=== PATIENT | female | born 1970 | race Caucasian/White ===

== ENCOUNTER 2020-07-25 20:25 | Observation (INO) | payer OTHER ==
[~2020-07-25] VITALS: Ht 162.6 cm; Wt 69.2 kg
[2020-07-25] MEDS ORDERED: ASPIRIN 325 MG TABLET PO ONE (20:45)
[2020-07-25] MEDS ORDERED: MORPHINE SULFATE 4 MG/ML VIAL. IV/SQ PRN (20:45)
[2020-07-25 20:51] LABS: BASO # 0.1 x10^3/uL (0.0-0.2); BASO % 1 % (0-3); EOS # 0.1 x10^3/uL (0.0-0.7); EOS % 1 % (0-3); HEMATOCRIT 38.7 % (36.0-47.0); HEMOGLOBIN 13.4 g/dL (12.0-15.5); LYMPH # 2.2 x10^3/uL (1.0-4.8); LYMPH % 28 % (24-48); MEAN CORPUSCULAR HEMOGLOBIN 31 pg (25-35); MEAN CORPUSCULAR HGB CONC 35 g/dL (31-37); MEAN CORPUSCULAR VOLUME 90 fL (79-100); MONO # 0.8 x10^3/uL (0.0-1.1); MONO % 10 % (0-9); NEUT # 4.9 x10^3/uL (1.8-7.7); NEUT % 61 % (31-73); PLATELET COUNT 409 x10^3/uL (140-400); RED BLOOD COUNT 4.28 x10^6/uL (3.50-5.40); RED CELL DISTRIBUTION WIDTH 13.3 % (11.5-14.5)
[2020-07-25 21:04] LABS: PROTHROMBIN TIME PATIENT 12.8 SEC (11.7-14.0)
[2020-07-25 21:07] LABS: D-DIMER < 0.27 ug/mlFEU (0.00-0.50)
[2020-07-25 21:11] LABS: ALBUMIN 4.1 g/dL (3.4-5.0); ALBUMIN/GLOBULIN RATIO 1.4 (1.0-1.7); CALCIUM 9.4 mg/dL (8.5-10.1); CREATININE 1.5 mg/dL (0.6-1.0); GFR 36.8; MAGNESIUM 2.2 mg/dL (1.8-2.4); TOTAL BILIRUBIN 0.3 mg/dL (0.2-1.0); TOTAL PROTEIN 7.1 g/dL (6.4-8.2)
[2020-07-25 21:13] LABS: POTASSIUM 2.5 mmol/L (3.5-5.1)
--- NOTE | 2020-07-25 21:15 | RAD ---
AP portable chest radiograph 07/25/2020 Clinical History: Chest pain. An AP erect portable digital radiograph of the chest was obtained. The cardiac silhouette is normal in size. The thoracic aorta is mildly tortuous. No acute pulmonary infiltrate is seen. No pleural effusion or pneumothorax is noted. Very mild S-shaped curvature of the thoracolumbar spine is seen. IMPRESSION: No acute abnormality is seen. Electronically signed by: Ab Davila MD (07/25/2020 9:12 PM) [id number]
[2020-07-25] MEDS: NITROGLYCERIN SUBLINGUAL 0.4 MG BOTTLE OF 25. SL PRN ×2 (21:23→21:31)
[2020-07-25] MEDS ORDERED: POTASSIUM CHLORIDE 20 MEQ TABLET.ER. PO ONE (21:30)
[2020-07-25 21:34] LABS: BILIRUBIN,URINE NEGATIVE (NEG); CLARITY,URINE CLEAR; COLOR,URINE YELLOW; NITRITE,URINE NEGATIVE (NEG); PH,URINE 6.5 (<5.0-8.0); PROTEIN,URINE NEGATIVE (NEG-TRACE); UROBILINOGEN,URINE 0.2 mg/dL (0.2 mg/dL)
[2020-07-25 21:40] LABS: BACTERIA,URINE 0 /HPF (0-FEW); RBC,URINE 0 /HPF (0-2); WBC,URINE 0 /HPF (0-4)
[2020-07-25] MEDS: POTASSIUM CHLORIDE 10MEQ 100 ML IV SCH ×2 (21:45→22:29)
[2020-07-25 21:49] LABS: BARBITURATES NEG (NEG); BENZODIAZEPINES POS (NEG); CANNABINOIDS NEG (NEG); COCAINE NEG (NEG); METHADONE NEG (NEG); OPIATES NEG (NEG); PHENCYCLIDINE NEG (NEG)
[2020-07-25 21:51] LABS: AMPHETAMINE/METHAMPHETAMINE POS (NEG)
--- NOTE | 2020-07-25 21:57 | PHYS DOC ---
Past Medical History Past Medical History: Anxiety, Hypertension, Hypothyroid (SULTANADAVIDPAULA Caceres APRN) Past Surgical History: Cholecystectomy, Tonsillectomy Additional Past Surgical Histo: ablasion, tummy tuck, breast aug, tubes in ears (PAULA HENRY APRN) Smoking Status: Never Smoker Alcohol Use: Heavy (PAULA HENRY APRN) General Adult EDM: Chief Complaint: CHEST PAIN HPI: HPI: Patient is a 50 year old female with hx of HTN, anxiety and hypothyroidism who presents with 10 out of 10 sharp substernal chest pain that radiated to her right upper extremity, symptoms began a couple minutes prior to coming to the ED after drinking alcohol and taking Xanax for chronic anxiety. Patient denies anything specifically exacerbating or relieving her symptoms. She is very upset cursing at hospital staff stating the men that dropped her in the hospital chose to leave without waiting for her, she states they took her phone. She states she lost her son recently and has been very upset (PAULA HENRY APRN) Review of Systems: Review of Systems: Constitutional: Denies fever or chills. [] Eyes: Denies change in visual acuity. [] HENT: Denies nasal congestion or sore throat. [] Respiratory: Denies cough or shortness of breath. [] Cardiovascular: Reports chest pain GI: Denies abdominal pain, nausea, vomiting, bloody stools or diarrhea. [] : Denies dysuria. [] Musculoskeletal: Denies back pain or joint pain. [] Integument: Denies rash. [] Neurologic: Denies headache, focal weakness or sensory changes. [] Psychiatric: Denies depression or anxiety. [] (PAULA HENRY BILL CUTTER) Heart Score: HEART Score for Chest Pain: HEART Score for Chest Pain Response (Comments) Value History Slighlty/Non-Suspicious 0 ECG Normal 0 Age >45 - < 65 1 Risk Factors 1 or 2 Risk Factors 1 Troponin >1-<3x Normal Limit 1 Total 3 Risk Factors: Risk Factors: DM, Current or recent (<one month) smoker, HTN, HLP, family history of CAD, obesity. Risk Scores: Score 0 - 3: 2.5% MACE over next 6 weeks - Discharge Home Score 4 - 6: 20.3% MACE over next 6 weeks - Admit for Clinical Observation Score 7 - 10: 72.7% MACE over next 6 weeks - Early Invasive Strategies (PAULA EHNRY BILL CUTTER) Current Medications: Current Medications Medications (Trade) Dose Ordered Sig/[facility] Start Time Stop Time Status Last Admin Dose Admin Aspirin (Ran Aspirin) 325 mg 1X ONCE 07/25/20 20:45 07/25/20 20:46 DC 07/25/20 21:01 325 MG Morphine Sulfate (Morphine Sulfate) 4 mg PRN Q15MIN PRN 07/25/20 20:45 07/26/20 20:44 07/25/20 21:01 4 MG Nitroglycerin (Nitrostat) 0.4 mg PRN Q5MIN PRN 07/25/20 20:45 07/26/20 20:44 07/25/20 21:31 0.4 MG Potassium Chloride/Water 100 ml @ 100 mls/hr Q1H 07/25/20 21:45 07/25/20 23:44 Potassium Chloride (Klor-Con) 40 meq 1X ONCE 07/25/20 21:30 07/25/20 21:31 DC 07/25/20 21:32 40 MEQ (MUTUNGAPAULA BILL CUTTER) Allergies: Allergies: Allergies Coded Allergies Type Severity Reaction Last Updated Verified No Known Drug Allergies 07/25/20 No (SULTANAUNGA,PAULA BILL CUTTER) Physical Exam: PE: Constitutional: Well developed, well nourished, no acute distress, non-toxic appearance. [] HENT: Normocephalic, atraumatic, bilateral external ears normal, oropharynx moist, no oral exudates, nose normal. [] Eyes: PERRLA, EOMI, conjunctiva normal, no discharge. [] Neck: Normal range of motion, no tenderness, supple, no stridor. [] Cardiovascular:Heart rate regular rhythm, no murmur [] Lungs & Thorax: Bilateral breath sounds clear to auscultation [] Abdomen: Bowel sounds normal, soft, no tenderness, no masses, no pulsatile masses. [] Skin: Warm, dry, no erythema, no rash. [] Back: No tenderness, no CVA tenderness. [] Extremities: No tenderness, no cyanosis, no clubbing, ROM intact, no edema. [] Neurologic: Alert and oriented X 3, normal motor function, normal sensory function, no focal deficits noted. [] Psychologic: Patient appears anxious,cursing at nursing staff (PAULA HENRY APRN) Current Patient Data: Labs: Laboratory Tests Test 07/25/20 20:40 07/25/20 21:24 White Blood Count 8.0 x10^3/uL (4.0-11.0) Red Blood Count 4.28 x10^6/uL (3.50-5.40) Hemoglobin 13.4 g/dL (12.0-15.5) Hematocrit 38.7 % (36.0-47.0) Mean Corpuscular Volume 90 fL (79-100) Mean Corpuscular Hemoglobin 31 pg (25-35) Mean Corpuscular Hemoglobin Concent 35 g/dL (31-37) Red Cell Distribution Width 13.3 % (11.5-14.5) Platelet Count 409 x10^3/uL (140-400) H Neutrophils (%) (Auto) 61 % (31-73) Lymphocytes (%) (Auto) 28 % (24-48) Monocytes (%) (Auto) 10 % (0-9) H Eosinophils (%) (Auto) 1 % (0-3) Basophils (%) (Auto) 1 % (0-3) Neutrophils # (Auto) 4.9 x10^3/uL (1.8-7.7) Lymphocytes # (Auto) 2.2 x10^3/uL (1.0-4.8) Monocytes # (Auto) 0.8 x10^3/uL (0.0-1.1) Eosinophils # (Auto) 0.1 x10^3/uL (0.0-0.7) Basophils # (Auto) 0.1 x10^3/uL (0.0-0.2) Prothrombin Time 12.8 SEC (11.7-14.0) Prothrombin Time INR 1.0 (0.8-1.1) D-Dimer (Maxine) < 0.27 ug/mlFEU Sodium Level 137 mmol/L (136-145) Potassium Level 2.5 mmol/L (3.5-5.1) *L Chloride Level 96 mmol/L (98-107) L Carbon Dioxide Level 25 mmol/L (21-32) Anion Gap 16 (6-14) H Blood Urea Nitrogen 26 mg/dL (7-20) H Creatinine 1.5 mg/dL (0.6-1.0) H Estimated GFR (Cockcroft-Gault) 36.8 BUN/Creatinine Ratio 17 (6-20) Glucose Level 102 mg/dL (70-99) H Calcium Level 9.4 mg/dL (8.5-10.1) Magnesium Level 2.2 mg/dL (1.8-2.4) Total Bilirubin 0.3 mg/dL (0.2-1.0) Aspartate Amino Transferase (AST) 157 U/L (15-37) H Alanine Aminotransferase (ALT) 69 U/L (14-59) H Alkaline Phosphatase 80 U/L (46-116) Troponin I Quantitative < 0.017 ng/mL (0.000-0.055) EL-Dob-R-Type Natriuretic Peptide 81 pg/mL (0-124) Total Protein 7.1 g/dL (6.4-8.2) Albumin 4.1 g/dL (3.4-5.0) Albumin/Globulin Ratio 1.4 (1.0-1.7) Thyroid Stimulating Hormone (TSH) 3.865 uIU/mL (0.358-3.74) H Urine Collection Type Unknown Urine Color Yellow Urine Clarity Clear Urine pH 6.5 (<5.0-8.0) Urine Specific [place] 1.010 (1.000-1.030) Urine Protein Negative mg/dL (NEG-TRACE) Urine Glucose (UA) Negative mg/dL (NEG) Urine Ketones (Stick) Negative mg/dL (NEG) Urine Blood Negative (NEG) Urine Nitrite Negative (NEG) Urine Bilirubin Negative (NEG) Urine Urobilinogen Dipstick 0.2 mg/dL (0.2 mg/dL) Urine Leukocyte Esterase Trace (NEG) Urine RBC 0 /HPF (0-2) Urine WBC 0 /HPF (0-4) Urine Squamous Epithelial Cells Occ /LPF Urine Bacteria 0 /HPF (0-FEW) Urine Opiates Screen Neg (NEG) Urine Methadone Screen Neg (NEG) Urine Barbiturates Neg (NEG) Urine Phencyclidine Screen Neg (NEG) Urine Amphetamine/Methamphetamine Pos (NEG) Urine Benzodiazepines Screen Pos (NEG) Urine Cocaine Screen Neg (NEG) Urine Cannabinoids Screen Neg (NEG) Urine Ethyl Alcohol Pos (NEG) Laboratory Tests 07/25/20 20:40 Laboratory Tests 07/25/20 20:40 Vital Signs: Vital Signs Date Time Temp Pulse Resp B/P (MAP) Pulse Ox O2 Delivery O2 Flow Rate FiO2 07/25/20 21:31 80 138/88 07/25/20 20:38 24 100 Room Air (PAULA HENRY APRN) EKG: EKG: [][address] Mora sinus rhythm HR 83 no STEMI (PAULA HENRY APRN) Radiology/Procedures: Radiology/Procedures: []PROCEDURE: PORTABLE CHEST 1V AP portable chest radiograph 07/25/2020 Clinical History: Chest pain. An AP erect portable digital radiograph of the chest was obtained. The cardiac silhouette is normal in size. The thoracic aorta is mildly tortuous. No acute pulmonary infiltrate is seen. No pleural effusion or pneumothorax is noted. Very mild S-shaped curvature of the thoracolumbar spine is seen. IMPRESSION: No acute abnormality is seen. Electronically signed by: Melquiades Davila MD (07/25/2020 9:12 PM) [id number] DICTATED and SIGNED BY: MELQUIADES DAVILA MD DATE: 07/25/202111 (PAULA HENRY APRN) Course & Med Decision Making: Course & Med Decision Making Pertinent Labs and Imaging studies reviewed. (See chart for details) This is a 50-year-old female patient presented to the ED today with chest pain that began a couple minutes ago. EKG is negative, troponin is normal, chest x-ray is negative. Heart score is 3 D-dimer is normal. CBC has no acute findings CMP, potassium 2.5 patient was given 40 mEq of oral potassium and started on potassium IV Urine drug screen positive for methamphetamines, benzodiazepines, alcohol Spoke with Dr. Campbell who accepted patient for admission. Routine cardiology consult placed Vitals are stable admitted in stable (PAULA HENRY APRN) Dragon Disclaimer: Dragon Disclaimer: This electronic medical record was generated, in whole or in part, using a voice recognition dictation system. (PAULA HENRY APRN) Departure Departure Impression: Primary Impression: Chest pain Qualified Codes: R07.9 - Chest pain, unspecified Additional Impression: Hypokalemia Disposition: ADMITTED INPT THIS HOSP Condition: STABLE Referrals: NO PCP (PCP) Attending Signature Attending Signature I have reviewed the non-physician practitioner's documentation, personally taken the patient's history, performed an exam and agree with the physical findings, clinical impression, and management plan. (HERNAN MORA DO) Attending Signature I have participated in the care of this patient and I have reviewed and agree with all pertinent clinical information above including history, exam, and recommendations. (PAULA HENRY APRN) PAULA HENRY APRN Jul 25, 2020 21:57 HERNAN MORA DO Jul 25, 2020 22:03
[2020-07-25] MEDS ORDERED: MAG HYDROX/ALUMINUM HYD/SIMETH 30 ML ORAL.SUSP PO PRN (22:15)
[2020-07-25] MEDS ORDERED: CALCIUM CARBONATE 500 MG TAB.CHEW PO PRN (22:15)
[2020-07-25] MEDS ORDERED: NITROGLYCERIN SUBLINGUAL 0.4 MG BOTTLE OF 25. SL PRN (22:15)
[2020-07-25] MEDS ORDERED: ZOLPIDEM 5 MG TABLET. PO PRN (22:15)
[2020-07-25] MEDS ORDERED: MORPHINE SULFATE 2 MG/ML VIAL. IV PRN ×2 (22:15)
[2020-07-25] MEDS ORDERED: ONDANSETRON PF 4 MG/2 ML VIAL. IV PRN (22:15)
[2020-07-25] MEDS ORDERED: ACETAMINOPHEN 325 MG TABLET. PO PRN ×2 (22:15)
[2020-07-25] MEDS ORDERED: ONDANSETRON PF 4 MG/2 ML VIAL. IVP PRN (22:15)
[2020-07-25] MEDS ORDERED: IBUPROFEN 400 MG TABLET. PO PRN (22:15)
[2020-07-25] MEDS ORDERED: HYDROmorphone 2 MG/ML VIAL IV PRN (22:15)
[2020-07-25] MEDS ORDERED: MAGNESIUM HYDROXIDE 2,400 MG/30 ML ORAL.SUSP. PO PRN (22:15)
[2020-07-25 23:27] VITALS: BP 134/90
[2020-07-25] MEDS ORDERED: adderall (23:33)
[2020-07-25] MEDS ORDERED: AMLO2.5T5 PO (23:33)
[2020-07-25] MEDS ORDERED: LISI-334 PO (23:33)
[2020-07-25] MEDS ORDERED: LIOT5TAB4 PO (23:33)
[2020-07-25] MEDS ORDERED: HYDR12.58 PO (23:33)
[2020-07-25] MEDS ORDERED: wellbutrin (23:33)
[2020-07-25] MEDS ORDERED: ALPR1TAB6 PO (23:33)
[2020-07-25] MEDS ORDERED: PANT40TA77 PO (23:33)
[2020-07-25] MEDS ORDERED: LEVO75TA76 PO (23:33)
[2020-07-25] MEDS ORDERED: ALPRAZolam 1 MG TABLET PO PRN (23:45)
[2020-07-26 02:20] VITALS: BP 119/80
--- NOTE | 2020-07-26 03:02 | NUR ---
Two saltine crackers and 4oz of diet cola given to patient at 0200 per pt request to help with heartburn/ulcers.
[2020-07-26 05:36] LABS: BASO % 1 % (0-3); EOS # 0.1 x10^3/uL (0.0-0.7); EOS % 2 % (0-3); HEMATOCRIT 37.8 % (36.0-47.0); HEMOGLOBIN 13.1 g/dL (12.0-15.5); LYMPH # 1.5 x10^3/uL (1.0-4.8); LYMPH % 20 % (24-48); MEAN CORPUSCULAR HEMOGLOBIN 32 pg (25-35); MEAN CORPUSCULAR HGB CONC 35 g/dL (31-37); MEAN CORPUSCULAR VOLUME 91 fL (79-100); MONO # 0.6 x10^3/uL (0.0-1.1); MONO % 8 % (0-9); NEUT # 5.1 x10^3/uL (1.8-7.7); NEUT % 69 % (31-73); PLATELET COUNT 328 x10^3/uL (140-400); RED BLOOD COUNT 4.15 x10^6/uL (3.50-5.40); RED CELL DISTRIBUTION WIDTH 13.4 % (11.5-14.5); WHITE BLOOD COUNT 7.4 x10^3/uL (4.0-11.0)
[2020-07-26 05:57] LABS: CALCIUM 8.9 mg/dL (8.5-10.1); CREATININE 1.2 mg/dL (0.6-1.0); GFR 47.6; POTASSIUM 4.7 mmol/L (3.5-5.1)
[2020-07-26] MEDS ORDERED: LEVOTHYROXINE 75 MCG TABLET PO SCH (06:00)
[2020-07-26 07:00] VITALS: BP 117/82
[2020-07-26] MEDS ORDERED: POTASSIUM CHLORIDE 20 MEQ TABLET.ER. PO ONE (07:00)
[2020-07-26] MEDS ORDERED: PANTOPRAZOLE 40 MG TABLET.DR. PO SCH (07:30)
--- NOTE | 2020-07-26 08:34 | PDOC1 ---
History and Physical Date of Admission Date of Admission DATE: 07/26/20 TIME: 08:33 Source Source: Chart review, Patient History of Present Illness History of Present Illness Ms. Johnson, is a 50 year old female adtmi from ER last nigth chest pain. She has a hx of HTN, anxiety and hypothyroidism Pain was 10 out of 10 sharp substernal chest pain that radiated to her right upper extremity, tehn to her right neck, not exactly jaw. She says the symptoms began a couple minutes prior to coming to the ED after drinking alcohol and taking Xanax for chronic anxiety. . She is very upset, actively in grief, that her son recently , and she needs to leave to plan Past Medical History Cardiovascular: HTN Psych: Anxiety Renal/: No pertinent hx Endocrine: No pertinent hx Past Surgical History Past Surgical History: No pertinent history Family History Family History: No Significant Social History Smoke: No ALCOHOL: social Drugs: None Current Problem List Problem List Problems Medical Problems: (1) Chest pain Status: Acute Current Medications Current Medications Current Medications Aspirin (Ran Aspirin) 325 mg 1X ONCE PO Last administered on 07/25/20at 21:01; Start 07/25/20 at 20:45; Stop 07/25/20 at 20:46; Status DC Nitroglycerin (Nitrostat) 0.4 mg PRN Q5MIN PRN SL CP RATING > 1/10 Last administered on 07/25/20at 21:31; Start 07/25/20 at 20:45; Stop 07/26/20 at 20:44 Morphine Sulfate (Morphine Sulfate) 4 mg PRN Q15MIN PRN IV/SQ PAIN GREATER THAN 3/10 Last administered on 07/25/20at 21:01; Start 07/25/20 at 20:45; Stop 07/26/20 at 20:44 Potassium Chloride (Klor-Con) 40 meq 1X ONCE PO Last administered on 07/25/20at 21:32; Start 07/25/20 at 21:30; Stop 07/25/20 at 21:31; Status DC Potassium Chloride/Water 100 ml @ 100 mls/hr Q1H IV Last administered on 07/25/20at 22:29; Start 07/25/20 at 21:45; Stop 07/25/20 at 23:44; Status DC Ondansetron HCl (Zofran) 4 mg PRN Q8HRS PRN IV NAUSEA/VOMITING; Start 07/25/20 at 22:15; Stop 07/26/20 at 22:14 Morphine Sulfate (Morphine Sulfate) 2 mg PRN Q2HR PRN IV PAIN; Start 07/25/20 at 22:15; Stop 07/26/20 at 22:14 Acetaminophen (Tylenol) 650 mg PRN Q4HRS PRN PO FEVER > 100.3'F; Start 07/25/20 at 22:15; Stop 07/26/20 at 22:14 Nitroglycerin (Nitrostat) 0.4 mg PRN Q5MIN PRN SL CHEST PAIN; Start 07/25/20 at 22:15; Stop 07/26/20 at 22:14 Potassium Chloride (Klor-Con) 40 meq 1X ONCE PO ; Start 07/26/20 at 07:00; Stop 07/26/20 at 07:01; Status DC Ondansetron HCl (Zofran) 4 mg PRN Q6HRS PRN IVP NAUSEA/VOMITING; Start 07/25/20 at 22:15 Al Hydroxide/Mg Hydroxide (Mylanta Plus Xs) 30 ml PRN Q3HRS PRN PO HEARTBURN / GAS; Start 07/25/20 at 22:15 Calcium Carbonate/ Glycine (Tums) 500 mg PRN Q3HRS PRN PO UPSET STOMACH; Start 07/25/20 at 22:15 Zolpidem Tartrate (Ambien) 5 mg PRN QHS PRN PO INSOMNIA, MAY REPEAT IN 1HR; Start 07/25/20 at 22:15 Morphine Sulfate (Morphine Sulfate) 2 mg PRN Q1HR PRN IV PAIN; Start 07/25/20 at 22:15 Hydromorphone HCl (Dilaudid) 0.4 mg PRN Q1HR PRN IV PAIN; Start 07/25/20 at 22:15 Acetaminophen (Tylenol) 650 mg PRN Q6HRS PRN PO Headaches, Temp > 101.5F; Start 07/25/20 at 22:15 Ibuprofen (Motrin) 400 mg PRN Q6HRS PRN PO MILD PAIN 1-3; Start 07/25/20 at 22:15 Magnesium Hydroxide (Milk Of Magnesia) 2,400 mg PRN Q12HR PRN PO CONSTIPATION; Start 07/25/20 at 22:15 Alprazolam (Xanax) 1 mg PRN TID PRN PO ANXIETY / AGITATION Last administered on 07/26/20at 00:11; Start 07/25/20 at 23:45 Levothyroxine Sodium (Synthroid) 75 mcg DAILY06 PO Last administered on 07/26/20at 05:22; Start 07/26/20 at 06:00 Liothyronine Sodium (Cytomel) 5 mcg DAILY PO ; Start 07/26/20 at 09:00 Lisinopril (Prinivil) 20 mg DAILY PO ; Start 07/26/20 at 09:00 Pantoprazole Sodium (Protonix) 40 mg DAILYAC PO ; Start 07/26/20 at 07:30 Amlodipine Besylate (Norvasc) 2.5 mg DAILY PO ; Start 07/26/20 at 09:00 Hydrochlorothiazide (Microzide) 12.5 mg DAILY PO ; Start 07/26/20 at 09:00 Active Scripts Active Reported [adderall] [wellbutrin] Hydrochlorothiazide Tablet (Hydrochlorothiazide) 12.5 Mg Tablet 12.5 Mg PO DAILY Pantoprazole Sodium (Pantoprazole Sodium) 40 Mg Tablet.dr 40 Mg PO DAILYAC Liothyronine Sodium 5 Mcg Tablet 1 Tab PO DAILY 30 Days Amlodipine Besylate 2.5 Mg Tablet 2.5 Mg PO DAILY Alprazolam 1 Mg Tablet 1 Mg PO PRN TID PRN Lisinopril 20 Mg Tablet 1 Tab PO DAILY Euthyrox (Levothyroxine Sodium) 75 Mcg Tablet 75 Mcg PO DAILY Allergies Allergies: Coded Allergies: No Known Drug Allergies (Unverified , 07/25/20) ROS General: No: Chills, Night Sweats, Fatigue, Malaise, Appetite, Other PSYCHOLOGICAL ROS: YES: Obsessive thoughts, Sleep disturbances, Suicidal ideation; No: Anxiety, Behavioral Disorder, Concentration difficultie, Decreased libido, Depression, Disorientation, Hallucinations, Hostility, Irritablity, Memory difficulties, Mood Swings, Other Eyes: No Blurry vision, No Decreased vision, No Double vision, No Dry eyes, No Excessive tearing, No Eye Pain, No Itchy Eyes, No Loss of vision, No Photophobia, No Scotomata, No Uses contacts, No Uses glasses, No Other HEENT: No: Heacaches, Visual Changes, Hearing change, Nasal congestion, Nasal discharge, Oral lesions, Sinus pain, Sore Throat, Epistaxis, Sneezing, Snoring, Tinnitus, Vertigo, Vocal changes, Other Respiratory: No: Cough, Hemoptysis, Orthopnea, Pleuritic Pain, Shortness of breath, SOB with excertion, Sputum Changes, Stridor, Tachypnea, Wheezing, Other Cardiovascular: yes Chest Pain Gastrointestinal: No Nausea, No Vomiting, No Abdominal Pain, No Diarrhea, No Constipation, No Melena, No Hematochezia, No Other Genitourinary: No Dysuria, No Frequency, No Incontinence, No Hematuria, No Retention, No Discharge, No Urgency, No Pain, No Flank Pain, No Other, No , No , No , No , No , No , No Musculoskeletal: No Gait Disturbance, No Joint Pain, No Joint Stiffness, No Joint Swelling, No Muscle Pain, No Muscular Weakness, No Pain In:, No Swelling In:, No Other Neurological: No Behavorial Changes, No Bowel/Bladder ControlChng, No Confusion, No Dizziness, No Gait Disturbance, No Headaches, No Impaired Coord/balance, No Memory Loss, No Numbness/Tingling, No Seizures, No Speech Problems, No Tremors, No Visual Changes, No Weakness, No Other Skin: No Dry Skin, No Eczema, No Hair Changes, No Lumps, No Mole Changes, No Mottling, No Nail Changes, No Pruritus, No Rash, No Skin Lesion Changes, No Other, No Acne Physical Exam General: Alert, Oriented X3, Cooperative, No acute distress HEENT: Atraumatic, PERRLA Lungs: Clear to auscultation Heart: S1S2 Extremities: No cyanosis Skin: No rashes Neuro: Normal speech, Sensation intact Psych/Mental Status: Mental status NL, Mood NL Vitals Vitals Vital Signs Date Time Temp Pulse Resp B/P (MAP) Pulse Ox O2 Delivery O2 Flow Rate FiO2 07/26/20 07:00 98.8 86 22 117/82 (94) 99 98.8 07/26/20 02:11 Room Air Labs Labs Laboratory Tests Test 07/25/20 20:40 07/25/20 21:24 07/26/20 05:00 White Blood Count 8.0 x10^3/uL (4.0-11.0) 7.4 x10^3/uL (4.0-11.0) Red Blood Count 4.28 x10^6/uL (3.50-5.40) 4.15 x10^6/uL (3.50-5.40) Hemoglobin 13.4 g/dL (12.0-15.5) 13.1 g/dL (12.0-15.5) Hematocrit 38.7 % (36.0-47.0) 37.8 % (36.0-47.0) Mean Corpuscular Volume 90 fL (79-100) 91 fL (79-100) Mean Corpuscular Hemoglobin 31 pg (25-35) 32 pg (25-35) Mean Corpuscular Hemoglobin Concent 35 g/dL (31-37) 35 g/dL (31-37) Red Cell Distribution Width 13.3 % (11.5-14.5) 13.4 % (11.5-14.5) Platelet Count 409 x10^3/uL (140-400) 328 x10^3/uL (140-400) Neutrophils (%) (Auto) 61 % (31-73) 69 % (31-73) Lymphocytes (%) (Auto) 28 % (24-48) 20 % (24-48) Monocytes (%) (Auto) 10 % (0-9) 8 % (0-9) Eosinophils (%) (Auto) 1 % (0-3) 2 % (0-3) Basophils (%) (Auto) 1 % (0-3) 1 % (0-3) Neutrophils # (Auto) 4.9 x10^3/uL (1.8-7.7) 5.1 x10^3/uL (1.8-7.7) Lymphocytes # (Auto) 2.2 x10^3/uL (1.0-4.8) 1.5 x10^3/uL (1.0-4.8) Monocytes # (Auto) 0.8 x10^3/uL (0.0-1.1) 0.6 x10^3/uL (0.0-1.1) Eosinophils # (Auto) 0.1 x10^3/uL (0.0-0.7) 0.1 x10^3/uL (0.0-0.7) Basophils # (Auto) 0.1 x10^3/uL (0.0-0.2) 0.0 x10^3/uL (0.0-0.2) Prothrombin Time 12.8 SEC (11.7-14.0) Prothromb Time International Ratio 1.0 (0.8-1.1) D-Dimer (Maxine) < 0.27 ug/mlFEU Sodium Level 137 mmol/L (136-145) 139 mmol/L (136-145) Potassium Level 2.5 mmol/L (3.5-5.1) 4.7 mmol/L (3.5-5.1) Chloride Level 96 mmol/L (98-107) 102 mmol/L (98-107) Carbon Dioxide Level 25 mmol/L (21-32) 29 mmol/L (21-32) Anion Gap 16 (6-14) 8 (6-14) Blood Urea Nitrogen 26 mg/dL (7-20) 22 mg/dL (7-20) Creatinine 1.5 mg/dL (0.6-1.0) 1.2 mg/dL (0.6-1.0) Estimated GFR (Cockcroft-Gault) 36.8 47.6 BUN/Creatinine Ratio 17 (6-20) Glucose Level 102 mg/dL (70-99) 84 mg/dL (70-99) Calcium Level 9.4 mg/dL (8.5-10.1) 8.9 mg/dL (8.5-10.1) Magnesium Level 2.2 mg/dL (1.8-2.4) Total Bilirubin 0.3 mg/dL (0.2-1.0) Aspartate Amino Transf (AST/SGOT) 157 U/L (15-37) Alanine Aminotransferase (ALT/SGPT) 69 U/L (14-59) Alkaline Phosphatase 80 U/L (46-116) Troponin I Quantitative < 0.017 ng/mL (0.000-0.055) < 0.017 ng/mL (0.000-0.055) ED-Oop-W-Type Natriuretic Peptide 81 pg/mL (0-124) Total Protein 7.1 g/dL (6.4-8.2) Albumin 4.1 g/dL (3.4-5.0) Albumin/Globulin Ratio 1.4 (1.0-1.7) Thyroid Stimulating Hormone (TSH) 3.865 uIU/mL (0.358-3.74) Urine Collection Type Unknown Urine Color Yellow Urine Clarity Clear Urine pH 6.5 (<5.0-8.0) Urine Specific [place] 1.010 (1.000-1.030) Urine Protein Negative mg/dL (NEG-TRACE) Urine Glucose (UA) Negative mg/dL (NEG) Urine Ketones (Stick) Negative mg/dL (NEG) Urine Blood Negative (NEG) Urine Nitrite Negative (NEG) Urine Bilirubin Negative (NEG) Urine Urobilinogen Dipstick 0.2 mg/dL (0.2 mg/dL) Urine Leukocyte Esterase Trace (NEG) Urine RBC 0 /HPF (0-2) Urine WBC 0 /HPF (0-4) Urine Squamous Epithelial Cells Occ /LPF Urine Bacteria 0 /HPF (0-FEW) Urine Opiates Screen Neg (NEG) Urine Methadone Screen Neg (NEG) Urine Barbiturates Neg (NEG) Urine Phencyclidine Screen Neg (NEG) Urine Amphetamine/Methamphetamine Pos (NEG) Urine Benzodiazepines Screen Pos (NEG) Urine Cocaine Screen Neg (NEG) Urine Cannabinoids Screen Neg (NEG) Urine Ethyl Alcohol Pos (NEG) Laboratory Tests Test 07/25/20 20:40 07/25/20 21:24 07/26/20 05:00 White Blood Count 8.0 x10^3/uL (4.0-11.0) 7.4 x10^3/uL (4.0-11.0) Red Blood Count 4.28 x10^6/uL (3.50-5.40) 4.15 x10^6/uL (3.50-5.40) Hemoglobin 13.4 g/dL (12.0-15.5) 13.1 g/dL (12.0-15.5) Hematocrit 38.7 % (36.0-47.0) 37.8 % (36.0-47.0) Mean Corpuscular Volume 90 fL (79-100) 91 fL (79-100) Mean Corpuscular Hemoglobin 31 pg (25-35) 32 pg (25-35) Mean Corpuscular Hemoglobin Concent 35 g/dL (31-37) 35 g/dL (31-37) Red Cell Distribution Width 13.3 % (11.5-14.5) 13.4 % (11.5-14.5) Platelet Count 409 x10^3/uL (140-400) 328 x10^3/uL (140-400) Neutrophils (%) (Auto) 61 % (31-73) 69 % (31-73) Lymphocytes (%) (Auto) 28 % (24-48) 20 % (24-48) Monocytes (%) (Auto) 10 % (0-9) 8 % (0-9) Eosinophils (%) (Auto) 1 % (0-3) 2 % (0-3) Basophils (%) (Auto) 1 % (0-3) 1 % (0-3) Neutrophils # (Auto) 4.9 x10^3/uL (1.8-7.7) 5.1 x10^3/uL (1.8-7.7) Lymphocytes # (Auto) 2.2 x10^3/uL (1.0-4.8) 1.5 x10^3/uL (1.0-4.8) Monocytes # (Auto) 0.8 x10^3/uL (0.0-1.1) 0.6 x10^3/uL (0.0-1.1) Eosinophils # (Auto) 0.1 x10^3/uL (0.0-0.7) 0.1 x10^3/uL (0.0-0.7) Basophils # (Auto) 0.1 x10^3/uL (0.0-0.2) 0.0 x10^3/uL (0.0-0.2) Prothrombin Time 12.8 SEC (11.7-14.0) Prothromb Time International Ratio 1.0 (0.8-1.1) D-Dimer (Maxine) < 0.27 ug/mlFEU Sodium Level 137 mmol/L (136-145) 139 mmol/L (136-145) Potassium Level 2.5 mmol/L (3.5-5.1) 4.7 mmol/L (3.5-5.1) Chloride Level 96 mmol/L (98-107) 102 mmol/L (98-107) Carbon Dioxide Level 25 mmol/L (21-32) 29 mmol/L (21-32) Anion Gap 16 (6-14) 8 (6-14) Blood Urea Nitrogen 26 mg/dL (7-20) 22 mg/dL (7-20) Creatinine 1.5 mg/dL (0.6-1.0) 1.2 mg/dL (0.6-1.0) Estimated GFR (Cockcroft-Gault) 36.8 47.6 BUN/Creatinine Ratio 17 (6-20) Glucose Level 102 mg/dL (70-99) 84 mg/dL (70-99) Calcium Level 9.4 mg/dL (8.5-10.1) 8.9 mg/dL (8.5-10.1) Magnesium Level 2.2 mg/dL (1.8-2.4) Total Bilirubin 0.3 mg/dL (0.2-1.0) Aspartate Amino Transf (AST/SGOT) 157 U/L (15-37) Alanine Aminotransferase (ALT/SGPT) 69 U/L (14-59) Alkaline Phosphatase 80 U/L (46-116) Troponin I Quantitative < 0.017 ng/mL (0.000-0.055) < 0.017 ng/mL (0.000-0.055) LF-Apj-Q-Type Natriuretic Peptide 81 pg/mL (0-124) Total Protein 7.1 g/dL (6.4-8.2) Albumin 4.1 g/dL (3.4-5.0) Albumin/Globulin Ratio 1.4 (1.0-1.7) Thyroid Stimulating Hormone (TSH) 3.865 uIU/mL (0.358-3.74) Urine Collection Type Unknown Urine Color Yellow Urine Clarity Clear Urine pH 6.5 (<5.0-8.0) Urine Specific [place] 1.010 (1.000-1.030) Urine Protein Negative mg/dL (NEG-TRACE) Urine Glucose (UA) Negative mg/dL (NEG) Urine Ketones (Stick) Negative mg/dL (NEG) Urine Blood Negative (NEG) Urine Nitrite Negative (NEG) Urine Bilirubin Negative (NEG) Urine Urobilinogen Dipstick 0.2 mg/dL (0.2 mg/dL) Urine Leukocyte Esterase Trace (NEG) Urine RBC 0 /HPF (0-2) Urine WBC 0 /HPF (0-4) Urine Squamous Epithelial Cells Occ /LPF Urine Bacteria 0 /HPF (0-FEW) Urine Opiates Screen Neg (NEG) Urine Methadone Screen Neg (NEG) Urine Barbiturates Neg (NEG) Urine Phencyclidine Screen Neg (NEG) Urine Amphetamine/Methamphetamine Pos (NEG) Urine Benzodiazepines Screen Pos (NEG) Urine Cocaine Screen Neg (NEG) Urine Cannabinoids Screen Neg (NEG) Urine Ethyl Alcohol Pos (NEG) VTE Prophylaxis Ordered VTE Prophylaxis Devices: No VTE Pharmacological Prophylaxi: Yes Assessment/Plan Assessment/Plan chest pain, GERD not angina active grief response, concern for stress cardiomyopathy, CV consutl, will get echo Adhd htn anxiety Justifications for Admission Other Justification Hypokalemia, unstable angina FLORES VANN MD Jul 26, 2020 08:34
[2020-07-26] MEDS ORDERED: amLODIPine BESYLATE 5 MG TABLET PO SCH (09:00)
[2020-07-26] MEDS ORDERED: LISINOPRIL 20 MG TABLET PO SCH (09:00)
[2020-07-26] MEDS ORDERED: LIOTHYRONINE 5 MCG TABLET. PO SCH (09:00)
[2020-07-26] MEDS ORDERED: hydroCHLOROthiazide 12.5 MG CAPSULE PO SCH (09:00)
[2020-07-26] MEDS ORDERED: ENOXAPARIN 40 MG/0.4 ML SYRINGE. SQ SCH (09:00)
[2020-07-26 09:43] LABS: CHOLESTEROL/HDL RATIO 2.5
--- NOTE | 2020-07-26 10:52 | NUR ---
SS following for discharge planning. SS reviewed pt chart and discussed with pt RN. Pt is from home and is currently on room air. ECHO today. Discharge order on the chart for home with self care.
[2020-07-26 11:00] VITALS: BP 113/75
--- NOTE | 2020-07-26 13:37 | PDOC2 ---
JOSE LUIS SALEH ENVIRONMENTAL PROJECT MANAGER 07/26/20 1337: CARDIAC CONSULT DATE OF CONSULT Date of Consult DATE: 07/26/20 TIME: 13:25 REASON FOR CONSULT Reason for Consult: Chest pain REFERRING PHYSICIAN Referring Physician: Socrates SOURCE Source: Chart review, Patient HISTORY OF PRESENT ILLNESS HISTORY OF PRESENT ILLNESS This is a pleasant 50 yo female admitted for complains of chest pain. Reports that this occurred yesterday, burning to sharp pain mid chest that fan out to her chest and shoulders. This is not exacerbated by positional changes or deep breathing. She does have GERD and takes prilosec and hax hx of stomach ulcer few years ago. No significant SOA or fatigue but feels anxious and presently grieving as her son was murdered last week. No recent falls or injury. She was told that her EKG was abnormal in the past. No hx of VTE, CAD and no arrhythmias. No intractable coughing. or any recent heavy lifting. She wants to go home and still need to arrange the service for his son. She does have good family support. No GOMEZ and no exertional CP. She takes 2 BP meds and her BP has been controlled per her. No hx of tobaccoism or recreational drug use. She did admit having some margaritas yesterday. She also takes sudafed for her nasal congestion and also adderral for ADD. PAST MEDICAL HISTORY Cardiovascular: HTN Pulmonary: No pertinent hx CENTRAL NERVOUS SYSTEM: Other (No pertinent history) GI: GERD, Peptic Ulcer disease Heme/Onc: No pertinent hx Hepatobiliary: No pertinent hx Psych: Anxiety, Depression Musculoskeletal: Osteoarthritis Rheumatologic: No pertinent hx ENT: No pertinent hx Renal/: No pertinent hx Endocrine: Hypothyroidism Dermatology: No pertinent hx PAST SURGICAL HISTORY Past Surgical History: Cholecystectomy, Tubal Ligation, Tonsillectomy FAMILY HISTORY Family History: Hypertension SOCIAL HISTORY Smoke: No ALCOHOL: occassional Drugs: None Lives: Alone CURRENT MEDICATIONS CURRENT MEDICATIONS Current Medications Medications (Trade) Dose Ordered Sig/Bill Route PRN Reason Start Time Stop Time Status Last Admin Dose Admin Aspirin (Ran Aspirin) 325 mg 1X ONCE PO 07/25/20 20:45 07/25/20 20:46 DC 07/25/20 21:01 Nitroglycerin (Nitrostat) 0.4 mg PRN Q5MIN PRN SL CP RATING > 09/2207/25/20 20:45 07/26/20 20:44 07/25/20 21:31 Morphine Sulfate (Morphine Sulfate) 4 mg PRN Q15MIN PRN IV/SQ PAIN GREATER THAN 310 07/25/20 20:45 07/26/20 20:44 07/25/20 21:01 Potassium Chloride (Klor-Con) 40 meq 1X ONCE PO 07/25/20 21:30 07/25/20 21:31 DC 07/25/20 21:32 Potassium Chloride/Water 100 ml @ 100 mls/hr Q1H IV 07/25/20 21:45 07/25/20 23:44 DC 07/25/20 22:29 Alprazolam (Xanax) 1 mg PRN TID PRN PO ANXIETY / AGITATION 07/25/20 23:45 07/26/20 00:11 Levothyroxine Sodium (Synthroid) 75 mcg DAILY06 PO 07/26/20 06:00 07/26/20 05:22 Liothyronine Sodium (Cytomel) 5 mcg DAILY PO 07/26/20 09:00 07/26/20 09:31 Lisinopril (Prinivil) 20 mg DAILY PO 07/26/20 09:00 07/26/20 09:31 Pantoprazole Sodium (Protonix) 40 mg DAILYAC PO 07/26/20 07:30 07/26/20 09:32 Amlodipine Besylate (Norvasc) 2.5 mg DAILY PO 07/26/20 09:00 07/26/20 09:31 Hydrochlorothiazide (Microzide) 12.5 mg DAILY PO 07/26/20 09:00 07/26/20 09:32 ALLERGIES ALLERGIES: Coded Allergies: No Known Drug Allergies (Unverified , 07/25/20) ROS Review of System 14 point ROS evaluated with pertinent positives noted per HPI PHYSICAL EXAM General: Alert, Oriented X3, Cooperative, No acute distress HEENT: Atraumatic, Mucous membr. moist/pink Lungs: Clear to auscultation, Normal air movement Heart: Regular rate (SR), Normal S1, Normal S2, No murmurs Abdomen: Soft, No tenderness Extremities: No cyanosis, No edema Skin: No breakdown, No significant lesion Neuro: Normal speech, Sensation intact Psych/Mental Status: Mental status NL, Mood NL MUSCULOSKELETAL: Osteoarthritic changes both hands VITALS/I&O VITALS/I&O: Vital Signs Date Time Temp Pulse Resp B/P (MAP) Pulse Ox O2 Delivery O2 Flow Rate FiO2 07/26/20 11:00 97.8 74 20 113/75 (88) 99 97.8 07/26/20 08:00 Room Air I & O 07/25/20 07/25/20 07/26/20 15:00 23:00 07:00 Intake Total 220 ml Output Total 1225 ml Balance -1005 ml LABS Lab: Laboratory Tests Test 07/25/20 20:40 07/25/20 21:24 07/26/20 05:00 07/26/20 11:05 White Blood Count 8.0 x10^3/uL (4.0-11.0) 7.4 x10^3/uL (4.0-11.0) Red Blood Count 4.28 x10^6/uL (3.50-5.40) 4.15 x10^6/uL (3.50-5.40) Hemoglobin 13.4 g/dL (12.0-15.5) 13.1 g/dL (12.0-15.5) Hematocrit 38.7 % (36.0-47.0) 37.8 % (36.0-47.0) Mean Corpuscular Volume 90 fL (79-100) 91 fL (79-100) Mean Corpuscular Hemoglobin 31 pg (25-35) 32 pg (25-35) Mean Corpuscular Hemoglobin Concent 35 g/dL (31-37) 35 g/dL (31-37) Red Cell Distribution Width 13.3 % (11.5-14.5) 13.4 % (11.5-14.5) Platelet Count 409 x10^3/uL (140-400) H 328 x10^3/uL (140-400) Neutrophils (%) (Auto) 61 % (31-73) 69 % (31-73) Lymphocytes (%) (Auto) 28 % (24-48) 20 % (24-48) L Monocytes (%) (Auto) 10 % (0-9) H 8 % (0-9) Eosinophils (%) (Auto) 1 % (0-3) 2 % (0-3) Basophils (%) (Auto) 1 % (0-3) 1 % (0-3) Neutrophils # (Auto) 4.9 x10^3/uL (1.8-7.7) 5.1 x10^3/uL (1.8-7.7) Lymphocytes # (Auto) 2.2 x10^3/uL (1.0-4.8) 1.5 x10^3/uL (1.0-4.8) Monocytes # (Auto) 0.8 x10^3/uL (0.0-1.1) 0.6 x10^3/uL (0.0-1.1) Eosinophils # (Auto) 0.1 x10^3/uL (0.0-0.7) 0.1 x10^3/uL (0.0-0.7) Basophils # (Auto) 0.1 x10^3/uL (0.0-0.2) 0.0 x10^3/uL (0.0-0.2) Prothrombin Time 12.8 SEC (11.7-14.0) Prothrombin Time INR 1.0 (0.8-1.1) D-Dimer (Maxine) < 0.27 ug/mlFEU Sodium Level 137 mmol/L (136-145) 139 mmol/L (136-145) Potassium Level 2.5 mmol/L (3.5-5.1) *L 4.7 mmol/L (3.5-5.1) # 3.9 mmol/L (3.5-5.1) Chloride Level 96 mmol/L (98-107) L 102 mmol/L (98-107) Carbon Dioxide Level 25 mmol/L (21-32) 29 mmol/L (21-32) Anion Gap 16 (6-14) H 8 (6-14) Blood Urea Nitrogen 26 mg/dL (7-20) H 22 mg/dL (7-20) H Creatinine 1.5 mg/dL (0.6-1.0) H 1.2 mg/dL (0.6-1.0) H Estimated GFR (Cockcroft-Gault) 36.8 47.6 BUN/Creatinine Ratio 17 (6-20) Glucose Level 102 mg/dL (70-99) H 84 mg/dL (70-99) Calcium Level 9.4 mg/dL (8.5-10.1) 8.9 mg/dL (8.5-10.1) Magnesium Level 2.2 mg/dL (1.8-2.4) Total Bilirubin 0.3 mg/dL (0.2-1.0) Aspartate Amino Transferase (AST) 157 U/L (15-37) H Alanine Aminotransferase (ALT) 69 U/L (14-59) H Alkaline Phosphatase 80 U/L (46-116) Troponin I Quantitative < 0.017 ng/mL (0.000-0.055) < 0.017 ng/mL (0.000-0.055) PK-Lui-E-Type Natriuretic Peptide 81 pg/mL (0-124) Total Protein 7.1 g/dL (6.4-8.2) Albumin 4.1 g/dL (3.4-5.0) Albumin/Globulin Ratio 1.4 (1.0-1.7) Thyroid Stimulating Hormone (TSH) 3.865 uIU/mL (0.358-3.74) H Urine Collection Type Unknown Urine Color Yellow Urine Clarity Clear Urine pH 6.5 (<5.0-8.0) Urine Specific [place] 1.010 (1.000-1.030) Urine Protein Negative mg/dL (NEG-TRACE) Urine Glucose (UA) Negative mg/dL (NEG) Urine Ketones (Stick) Negative mg/dL (NEG) Urine Blood Negative (NEG) Urine Nitrite Negative (NEG) Urine Bilirubin Negative (NEG) Urine Urobilinogen Dipstick 0.2 mg/dL (0.2 mg/dL) Urine Leukocyte Esterase Trace (NEG) Urine RBC 0 /HPF (0-2) Urine WBC 0 /HPF (0-4) Urine Squamous Epithelial Cells Occ /LPF Urine Bacteria 0 /HPF (0-FEW) Urine Opiates Screen Neg (NEG) Urine Methadone Screen Neg (NEG) Urine Barbiturates Neg (NEG) Urine Phencyclidine Screen Neg (NEG) Urine Amphetamine/Methamphetamine Pos (NEG) Urine Benzodiazepines Screen Pos (NEG) Urine Cocaine Screen Neg (NEG) Urine Cannabinoids Screen Neg (NEG) Urine Ethyl Alcohol Pos (NEG) Triglycerides Level 59 mg/dL (0-150) Cholesterol Level 188 mg/dL (0-200) LDL Cholesterol, Calculated 100 mg/dL (0-100) VLDL Cholesterol, Calculated 12 mg/dL (0-40) Non-HDL Cholesterol Calculated 112 mg/dL (0-129) HDL Cholesterol 76 mg/dL (40-60) H Cholesterol/HDL Ratio 2.5 Laboratory Tests 07/25/20 20:40 07/26/20 05:00 Laboratory Tests 07/25/20 20:40 07/26/20 05:00 07/26/20 11:05 ASSESSMENT/PLAN ASSESSMENT/PLAN 1. Atypical CP: possibly from GI 2. Anxiety/grief: son last week. good family support 3. GERD with hx of PUD 4. Hypothyroidism: TSH not on goal, on replacement 5. ADD: on adderall hence +amphetamines 6. HTN: on home norvasc/lisinopril controlled Recommendations 1. Lipids TTE, may DC if echo is unremarkable 2. Resume home BP regimen JORGE BETANCUR MD 07/26/20 9376: CARDIAC CONSULT ASSESSMENT/PLAN ASSESSMENT/PLAN Patient seen and examined. Agree with HOME SERVICE DEMONSTRATOR;s assessment and plan. CP very atypical and most probably GI etiology 2D echo showed normal LVF without WMA Plan ischemic evaluation as outpatient Thank you for your consultation JOSE LUIS SALEH APRN Jul 26, 2020 13:37 JORGE BETANCUR MD Jul 26, 2020 18:36
[2020-07-26 15:00] VITALS: BP 108/64
--- NOTE | 2020-07-26 15:53 | PDOC3 ---
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, CV consutl, will get echo Adhd htn anxiety Problems Medical Problems: (1) Chest pain Status: Acute Brief Hospital Course Allergies Allergies Coded Allergies Type Severity Reaction Last Updated Verified No Known Drug Allergies 07/25/20 No Vital Signs Vital Signs Date Time Temp Pulse Resp B/P (MAP) Pulse Ox O2 Delivery O2 Flow Rate FiO2 07/26/20 11:00 97.8 74 20 113/75 (88) 99 97.8 07/26/20 08:00 Room Air Lab Results Laboratory Tests Test 07/25/20 20:40 07/25/20 21:24 07/26/20 05:00 07/26/20 11:05 White Blood Count 8.0 x10^3/uL (4.0-11.0) 7.4 x10^3/uL (4.0-11.0) Red Blood Count 4.28 x10^6/uL (3.50-5.40) 4.15 x10^6/uL (3.50-5.40) Hemoglobin 13.4 g/dL (12.0-15.5) 13.1 g/dL (12.0-15.5) Hematocrit 38.7 % (36.0-47.0) 37.8 % (36.0-47.0) Mean Corpuscular Volume 90 fL (79-100) 91 fL (79-100) Mean Corpuscular Hemoglobin 31 pg (25-35) 32 pg (25-35) Mean Corpuscular Hemoglobin Concent 35 g/dL (31-37) 35 g/dL (31-37) Red Cell Distribution Width 13.3 % (11.5-14.5) 13.4 % (11.5-14.5) Platelet Count 409 x10^3/uL (140-400) 328 x10^3/uL (140-400) Neutrophils (%) (Auto) 61 % (31-73) 69 % (31-73) Lymphocytes (%) (Auto) 28 % (24-48) 20 % (24-48) Monocytes (%) (Auto) 10 % (0-9) 8 % (0-9) Eosinophils (%) (Auto) 1 % (0-3) 2 % (0-3) Basophils (%) (Auto) 1 % (0-3) 1 % (0-3) Neutrophils # (Auto) 4.9 x10^3/uL (1.8-7.7) 5.1 x10^3/uL (1.8-7.7) Lymphocytes # (Auto) 2.2 x10^3/uL (1.0-4.8) 1.5 x10^3/uL (1.0-4.8) Monocytes # (Auto) 0.8 x10^3/uL (0.0-1.1) 0.6 x10^3/uL (0.0-1.1) Eosinophils # (Auto) 0.1 x10^3/uL (0.0-0.7) 0.1 x10^3/uL (0.0-0.7) Basophils # (Auto) 0.1 x10^3/uL (0.0-0.2) 0.0 x10^3/uL (0.0-0.2) Prothrombin Time 12.8 SEC (11.7-14.0) Prothromb Time International Ratio 1.0 (0.8-1.1) D-Dimer (Maxine) < 0.27 ug/mlFEU Sodium Level 137 mmol/L (136-145) 139 mmol/L (136-145) Potassium Level 2.5 mmol/L (3.5-5.1) 4.7 mmol/L (3.5-5.1) 3.9 mmol/L (3.5-5.1) Chloride Level 96 mmol/L (98-107) 102 mmol/L (98-107) Carbon Dioxide Level 25 mmol/L (21-32) 29 mmol/L (21-32) Anion Gap 16 (6-14) 8 (6-14) Blood Urea Nitrogen 26 mg/dL (7-20) 22 mg/dL (7-20) Creatinine 1.5 mg/dL (0.6-1.0) 1.2 mg/dL (0.6-1.0) Estimated GFR (Cockcroft-Gault) 36.8 47.6 BUN/Creatinine Ratio 17 (6-20) Glucose Level 102 mg/dL (70-99) 84 mg/dL (70-99) Calcium Level 9.4 mg/dL (8.5-10.1) 8.9 mg/dL (8.5-10.1) Magnesium Level 2.2 mg/dL (1.8-2.4) Total Bilirubin 0.3 mg/dL (0.2-1.0) Aspartate Amino Transf (AST/SGOT) 157 U/L (15-37) Alanine Aminotransferase (ALT/SGPT) 69 U/L (14-59) Alkaline Phosphatase 80 U/L (46-116) Troponin I Quantitative < 0.017 ng/mL (0.000-0.055) < 0.017 ng/mL (0.000-0.055) AS-Agf-H-Type Natriuretic Peptide 81 pg/mL (0-124) Total Protein 7.1 g/dL (6.4-8.2) Albumin 4.1 g/dL (3.4-5.0) Albumin/Globulin Ratio 1.4 (1.0-1.7) Thyroid Stimulating Hormone (TSH) 3.865 uIU/mL (0.358-3.74) Urine Collection Type Unknown Urine Color Yellow Urine Clarity Clear Urine pH 6.5 (<5.0-8.0) Urine Specific [place] 1.010 (1.000-1.030) Urine Protein Negative mg/dL (NEG-TRACE) Urine Glucose (UA) Negative mg/dL (NEG) Urine Ketones (Stick) Negative mg/dL (NEG) Urine Blood Negative (NEG) Urine Nitrite Negative (NEG) Urine Bilirubin Negative (NEG) Urine Urobilinogen Dipstick 0.2 mg/dL (0.2 mg/dL) Urine Leukocyte Esterase Trace (NEG) Urine RBC 0 /HPF (0-2) Urine WBC 0 /HPF (0-4) Urine Squamous Epithelial Cells Occ /LPF Urine Bacteria 0 /HPF (0-FEW) Urine Opiates Screen Neg (NEG) Urine Methadone Screen Neg (NEG) Urine Barbiturates Neg (NEG) Urine Phencyclidine Screen Neg (NEG) Urine Amphetamine/Methamphetamine Pos (NEG) Urine Benzodiazepines Screen Pos (NEG) Urine Cocaine Screen Neg (NEG) Urine Cannabinoids Screen Neg (NEG) Urine Ethyl Alcohol Pos (NEG) Triglycerides Level 59 mg/dL (0-150) Cholesterol Level 188 mg/dL (0-200) LDL Cholesterol, Calculated 100 mg/dL (0-100) VLDL Cholesterol, Calculated 12 mg/dL (0-40) Non-HDL Cholesterol Calculated 112 mg/dL (0-129) HDL Cholesterol 76 mg/dL (40-60) Cholesterol/HDL Ratio 2.5 Laboratory Tests Test 07/25/20 20:40 07/25/20 21:24 07/26/20 05:00 07/26/20 11:05 White Blood Count 8.0 x10^3/uL (4.0-11.0) 7.4 x10^3/uL (4.0-11.0) Red Blood Count 4.28 x10^6/uL (3.50-5.40) 4.15 x10^6/uL (3.50-5.40) Hemoglobin 13.4 g/dL (12.0-15.5) 13.1 g/dL (12.0-15.5) Hematocrit 38.7 % (36.0-47.0) 37.8 % (36.0-47.0) Mean Corpuscular Volume 90 fL (79-100) 91 fL (79-100) Mean Corpuscular Hemoglobin 31 pg (25-35) 32 pg (25-35) Mean Corpuscular Hemoglobin Concent 35 g/dL (31-37) 35 g/dL (31-37) Red Cell Distribution Width 13.3 % (11.5-14.5) 13.4 % (11.5-14.5) Platelet Count 409 x10^3/uL (140-400) 328 x10^3/uL (140-400) Neutrophils (%) (Auto) 61 % (31-73) 69 % (31-73) Lymphocytes (%) (Auto) 28 % (24-48) 20 % (24-48) Monocytes (%) (Auto) 10 % (0-9) 8 % (0-9) Eosinophils (%) (Auto) 1 % (0-3) 2 % (0-3) Basophils (%) (Auto) 1 % (0-3) 1 % (0-3) Neutrophils # (Auto) 4.9 x10^3/uL (1.8-7.7) 5.1 x10^3/uL (1.8-7.7) Lymphocytes # (Auto) 2.2 x10^3/uL (1.0-4.8) 1.5 x10^3/uL (1.0-4.8) Monocytes # (Auto) 0.8 x10^3/uL (0.0-1.1) 0.6 x10^3/uL (0.0-1.1) Eosinophils # (Auto) 0.1 x10^3/uL (0.0-0.7) 0.1 x10^3/uL (0.0-0.7) Basophils # (Auto) 0.1 x10^3/uL (0.0-0.2) 0.0 x10^3/uL (0.0-0.2) Prothrombin Time 12.8 SEC (11.7-14.0) Prothromb Time International Ratio 1.0 (0.8-1.1) D-Dimer (Maxine) < 0.27 ug/mlFEU Sodium Level 137 mmol/L (136-145) 139 mmol/L (136-145) Potassium Level 2.5 mmol/L (3.5-5.1) 4.7 mmol/L (3.5-5.1) 3.9 mmol/L (3.5-5.1) Chloride Level 96 mmol/L (98-107) 102 mmol/L (98-107) Carbon Dioxide Level 25 mmol/L (21-32) 29 mmol/L (21-32) Anion Gap 16 (6-14) 8 (6-14) Blood Urea Nitrogen 26 mg/dL (7-20) 22 mg/dL (7-20) Creatinine 1.5 mg/dL (0.6-1.0) 1.2 mg/dL (0.6-1.0) Estimated GFR (Cockcroft-Gault) 36.8 47.6 BUN/Creatinine Ratio 17 (6-20) Glucose Level 102 mg/dL (70-99) 84 mg/dL (70-99) Calcium Level 9.4 mg/dL (8.5-10.1) 8.9 mg/dL (8.5-10.1) Magnesium Level 2.2 mg/dL (1.8-2.4) Total Bilirubin 0.3 mg/dL (0.2-1.0) Aspartate Amino Transf (AST/SGOT) 157 U/L (15-37) Alanine Aminotransferase (ALT/SGPT) 69 U/L (14-59) Alkaline Phosphatase 80 U/L (46-116) Troponin I Quantitative < 0.017 ng/mL (0.000-0.055) < 0.017 ng/mL (0.000-0.055) GG-Ikz-E-Type Natriuretic Peptide 81 pg/mL (0-124) Total Protein 7.1 g/dL (6.4-8.2) Albumin 4.1 g/dL (3.4-5.0) Albumin/Globulin Ratio 1.4 (1.0-1.7) Thyroid Stimulating Hormone (TSH) 3.865 uIU/mL (0.358-3.74) Urine Collection Type Unknown Urine Color Yellow Urine Clarity Clear Urine pH 6.5 (<5.0-8.0) Urine Specific [place] 1.010 (1.000-1.030) Urine Protein Negative mg/dL (NEG-TRACE) Urine Glucose (UA) Negative mg/dL (NEG) Urine Ketones (Stick) Negative mg/dL (NEG) Urine Blood Negative (NEG) Urine Nitrite Negative (NEG) Urine Bilirubin Negative (NEG) Urine Urobilinogen Dipstick 0.2 mg/dL (0.2 mg/dL) Urine Leukocyte Esterase Trace (NEG) Urine RBC 0 /HPF (0-2) Urine WBC 0 /HPF (0-4) Urine Squamous Epithelial Cells Occ /LPF Urine Bacteria 0 /HPF (0-FEW) Urine Opiates Screen Neg (NEG) Urine Methadone Screen Neg (NEG) Urine Barbiturates Neg (NEG) Urine Phencyclidine Screen Neg (NEG) Urine Amphetamine/Methamphetamine Pos (NEG) Urine Benzodiazepines Screen Pos (NEG) Urine Cocaine Screen Neg (NEG) Urine Cannabinoids Screen Neg (NEG) Urine Ethyl Alcohol Pos (NEG) Triglycerides Level 59 mg/dL (0-150) Cholesterol Level 188 mg/dL (0-200) LDL Cholesterol, Calculated 100 mg/dL (0-100) VLDL Cholesterol, Calculated 12 mg/dL (0-40) Non-HDL Cholesterol Calculated 112 mg/dL (0-129) HDL Cholesterol 76 mg/dL (40-60) Cholesterol/HDL Ratio 2.5 Brief Hospital Course Ms. Johnson is a 50 old admit with chest pain, r/o ACS [facility] labs echo done, results OK active grief Dc hjome Discharge Information Condition at Discharge: Improved Follow Up: Weeks Disposition/Orders: D/C to Home Scheduled Amlodipine Besylate (Amlodipine Besylate) 2.5 Mg Tablet, 2.5 MG PO DAILY for HTN, (Reported) Entered as Reported by: JUDY CESAR on 07/25/202332 Last Action: Converted on 07/25/202340 by JUDY CESAR Hydrochlorothiazide (Hydrochlorothiazide Tablet) 12.5 Mg Tablet, 12.5 MG PO DAILY for DIURETIC, Ref 0 (Reported) Entered as Reported by: JUDY CESAR on 07/25/202332 Last Action: Converted on 07/25/202340 by JUDY CESAR Levothyroxine Sodium (Euthyrox) 75 Mcg Tablet, 75 MCG PO DAILY for hypothyroid, (Reported) Entered as Reported by: JUDY CESAR on 07/25/202332 Last Action: Continued on 07/25/202340 by JUDY CESAR Liothyronine Sodium (Liothyronine Sodium) 5 Mcg Tablet, 1 TAB PO DAILY for hypothyroid for 30 Days, #30 Ref 0 (Reported) Entered as Reported by: JUDY CESAR on 07/25/202332 Last Action: Continued on 07/25/202340 by JUDY CESAR Lisinopril (Lisinopril) 20 Mg Tablet, 1 TAB PO DAILY for HTN, #30 Ref 5 (Reported) Entered as Reported by: JUDY CESAR on 07/25/202332 Last Action: Continued on 07/25/202340 by JUDY CESAR Pantoprazole Sodium (Pantoprazole Sodium ) 40 Mg Tablet.dr, 40 MG PO DAILYAC for GERD, (Reported) Entered as Reported by: JUDY CESAR on 07/25/202332 Last Action: Continued on 07/25/202340 by JUDY CESAR Scheduled PRN Alprazolam (Alprazolam) 1 Mg Tablet, 1 MG PO PRN TID PRN for ANXIETY / AGITATION, Ref 0 (Reported) Entered as Reported by: JUDY CESAR on 07/25/202332 Last Action: Continued on 07/25/202340 by JUDY CESAR Miscellaneous Medications [adderall] , (Reported) Entered as Reported by: JUDY CESAR on 07/25/202332 Last Action: New Order on 07/25/202332 by JUDY CESAR [wellbutrin] , (Reported) Entered as Reported by: JUDY CESAR on 07/25/202332 Last Action: New Order on 07/25/202332 by JUDY CESAR Justicifation of Admission Dx: Justifications for Admission: Justification of Admission Dx: No (obs) FLORES VANN MD Jul 26, 2020 15:53
--- NOTE | 2020-07-26 17:19 | NUR ---
Discharge Note: SUGAR BLACK Discharge instructions and discharge home medications reviewed with Patient and a copy given. All questions have been answered and understanding verbalized. The following instructions and handouts were given: echocardiogram, chest pain information. Discontinued lines and drains: dry and intact. Patient discharged to home with self care via private car at 1700.
--- NOTE | 2020-07-26 18:26 | CARD ---
MR#: [id number] Date of Study: 07/26/2020 Ordering Physician: JOSE LUIS SALEH, Referring Physician: JOSE LUIS SALEH, Tech: Lovely Akers APPROVED REPORT EXAM: Two-dimensional and M-mode echocardiogram with Doppler and color Doppler. Other Information Quality : AverageHR: 83bpm INDICATION Chest Pain Tachycardia 2D DIMENSIONS Left Atrium(2D)2.5 (1.6-4.0cm)IVSd0.9 (0.7-1.1cm) Aortic Root(2D)3.2 (2.0-3.7cm)LVDd4.4 (3.9-5.9cm) LVOT Diameter2.0 (1.8-2.4cm)PWd0.9 (0.7-1.1cm) LVDs2.4 (2.5-4.0cm)FS (%) 44.9 % SV68.0 mlLVEF(%)76.4 (>50%) Aortic Valve AoV Peak Josiah.142.9cm/sAoV VTI25.8cm AO Peak GR.8.2mmHgLVOT Peak Josiah.118.5cm/s LVOT VTI 23.79cmAO Mean GR.4mmHg NOAM (VMAX)2.29df7KUZ (VTI)2.89cm2 Mitral Valve MV E Vjwvpmnu62.9cm/sMV DECEL MSDF110vk MV A Pkpinxws54.5cm/sMV WFC10jw E/A Ratio1.3MVA (PHT)3.24cm2 TDI E/Lateral E'6.4E/Medial E'7.8 Pulmonary Valve PV Peak Qdsbrrfv41.3cm/sPV Peak Grad.4mmHg Tricuspid Valve TR P. Ojdmjble590qv/sTR Peak Gr.21mmHg Pulmonary Vein S1 Tquyhicd95.0cm/sD2 Lsyskkdh14.8cm/s PVa [id number] LEFT VENTRICLE The left ventricle is normal size. There is normal left ventricular wall thickness. The left ventricu lar systolic function is normal and the ejection fraction is within normal range. The Ejection Fracti on is 55-60%. There is normal LV segmental wall motion. Transmitral Doppler flow pattern is Grade II- pseudonormal filling dynamics. RIGHT VENTRICLE The right ventricle is normal size. There is normal right ventricular wall thickness. The right ventr icular systolic function is normal. ATRIA The left atrium size is normal. The right atrium size is normal. The interatrial septum is intact wit h no evidence for an atrial septal defect or patent foramen ovale as noted on 2-D or Doppler imaging. AORTIC VALVE The aortic valve is normal in structure and function. Doppler and Color Flow revealed no significant aortic regurgitation. There is no significant aortic valvular stenosis. Calculated aortic valve area is 3.37 cm2 with maximum pressure gradient of 9 mmHg and mean pressure gradient of 5 mmHg. MITRAL VALVE The mitral valve is normal in structure and function. There is no evidence of mitral valve prolapse. There is no mitral valve stenosis. Doppler and Color-flow revealed trace mitral regurgitation. TRICUSPID VALVE The tricuspid valve is normal in structure and function. Doppler and Color Flow revealed trace tricus pid regurgitation with an estimated PAP of 28 mmHg. There is no tricuspid valve stenosis. PULMONIC VALVE The pulmonic valve is not well visualized. Doppler and Color Flow revealed trace pulmonic valvular re gurgitation. There is no pulmonic valvular stenosis. GREAT VESSELS The aortic root is normal in size. The IVC was not visualized. PERICARDIAL EFFUSION There is no evidence of significant pericardial effusion. Critical Notification Critical Value: No <Conclusion> The left ventricular systolic function is normal and the ejection fraction is within normal range. Th e Ejection Fraction is 55-60%. There is normal LV segmental wall motion. Signed by : Abhishek Santizo, Electronically Approved : 07/26/2020 18:25:33
--- NOTE | 2020-07-28 14:02 | EKG ---
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
== END 2020-07-26 17:00 | disposition home or self-care (01) ==
LOC: ER 20:25 → 2 SOUTH 22:19
PROVIDERS: ADMIT Family Medicine; ATTEND Family Medicine
DX: R07.89 Other chest pain (principal); K21.9 Gastro-esophageal reflux disease without esophagitis; I20.9 Angina pectoris, unspecified; I10 Essential (primary) hypertension; I20.0 Unstable angina; F41.9 Anxiety disorder, unspecified; F90.9 Attention-deficit hyperactivity disorder, unspecified type; E87.6 Hypokalemia; K27.9 Peptic ulcer, site unspecified, unspecified as acute or chronic, without hemorrhage or perforation; M19.90 Unspecified osteoarthritis, unspecified site; E03.9 Hypothyroidism, unspecified; Z79.82 Long term (current) use of aspirin; Z90.49 Acquired absence of other specified parts of digestive tract; Z98.890 Other specified postprocedural states; Z98.51 Tubal ligation status; Z79.899 Other long term (current) drug therapy
CPT/HCPCS: 36415; 71045; 80048; 80053; 80061; 80307; 81001; 83735; 83880; 84132; 84443; 84484; 85025; 85379; 85610; 93005; 93306; 96365; 96366; 96375; 99285; G0378; J2270; J3480; G0379